=== PATIENT | female | born 2000 | race Caucasian/White ===

== ENCOUNTER 2022-07-03 08:34 | Emergency (ER) | payer SELFPAY ==
[2022-07-03] MEDS ORDERED: predniSONE 20 MG TAB ONE (10:11)
[2022-07-03] MEDS ORDERED: Ibuprofen 200 MG TAB ONE (10:12)
[2022-07-03 11:20] LABS: SARS-CoV-2 NAA Rapid Test Not Detected (NotDetected)
== END 2022-07-03 12:13 | disposition home or self-care (01) ==
LOC: CSHERS 08:34
DX: J02.0 Streptococcal pharyngitis (principal); Z20.822 Contact with and (suspected) exposure to COVID-19
CPT/HCPCS: 87430; 99283; J7512

== ENCOUNTER 2023-02-17 01:35 | Emergency (ER) | payer SELFPAY | END 2023-02-17 03:07 | disposition left against medical advice (07) | LOC: CSHERS 01:35 | DX: Z53.21 Procedure and treatment not carried out due to patient leaving prior to being seen by health care provider (principal) ==